=== PATIENT | male | born 1945 | race Caucasian/White ===

== ENCOUNTER 2018-02-04 09:55 | Day surgery (SDC) | payer MEDICARE, OTHER ==
[~2018-02-04] VITALS: Ht 185.4 cm; Wt 79.4 kg
[~2018-02-04 09:55] MED LIST: ASPIR-LOW81 MG PO; B COMPLEX1 EACH PO; CELEBREX200 MG PO; CENTRUM SILVER1 EAC3 PO; FISH OIL 1,0001 EAC3 PO; MELOXICAM15 MG PO; NORCO 5-325 TA1 EACH PO; PRAVACHOL40 MG PO
--- NOTE | 2018-02-04 13:19 | NUR ---
PT IS ALERT AND ORIENTED. HIS RAJ AND Te IN LAW PRESENT. PT SEEMS INFORMED AND PREPARED, REQUESTED PRAYER. WILL FOLLOW NEEDED
--- NOTE | 2018-02-04 13:25 | NUR ---
02/04/18 1325 Kristi Machuca 1317- PT ARRIVES TO PACU ON LEFT SIDE. PT AWAKE, BUT DROWSY. PT REPORTS NO PAIN OR NAUSEA AT THIS TIME.
--- NOTE | 2018-02-05 10:03 | OR ---
[facility] [address], [place] [address] Signed DATE OF OPERATION: 02/04/2018 SURGEON: Sagrario Yi MD PREOPERATIVE DIAGNOSIS: History of tubular adenomas x3, 2016. POSTOPERATIVE DIAGNOSIS: Normal colon to cecum. PROCEDURE: Total colonoscopy to cecum. ANESTHESIA: Intravenous sedation, fentanyl 100 mcg, Versed 5 mg. INDICATION: This 72-year-old white man is a patient of Dr. Elmore and underwent colonoscopy by me in 2015, at which time he was found to have three tubular adenomas, which were excised. He is generally symptom-free, having no bleeding, diarrhea, or constipation problems. He is admitted at this time to undergo colonoscopy. He understands the risks of bleeding, infection, and perforation. FINDINGS: The prep was excellent. Complete colonoscopy was undertaken of the cecum. There was no evidence of polyps or other abnormality. DESCRIPTION OF PROCEDURE: The patient was brought to the endoscopy suite and placed in lateral decubitus position given intravenous sedation to the point of slurred speech and nystagmus. Digital rectal examination was normal. An Olympus video colonoscope was passed in the rectum and manipulated throughout the colon ultimately intubating the cecum itself. The ileocecal valve and appendiceal orifice were normal. The scope was withdrawn from that point. Examination throughout showed no sign of abnormality, specifically no polyps, diverticular formation, colitis, or cancer. Retroflex view of the rectum was normal. The scope was removed. The patient was taken to recovery room in good condition. CONCLUDING DIAGNOSIS: Normal colon. Electronically Signed By: SAGRARIO YI MD 02/05/18 1003 PATIENT NAME: CHEYENNE MURILLO OPERATIVE REPORT DATE OF : 41 REPORT #: [id number] PHYSICIAN: SAGRARIO YI MD PCP: ELIZABETH FISHER PA-C REPORT IS CONFIDENTIAL AND NOT TO BE RELEASED WITHOUT AUTHORIZATION [facility] [address] [place], [place] [address], [place] [address] Signed PLAN: Recommend repeat colonoscopy in 7 years sooner if clinically indicated. He will return to the ongoing care of Dr. Elmore. MD TANJA Fiore/ABDI /[id number] cc: Vincenzo Elmore DO Copies: VINCENZO ELMORE DO ~ Electronically Signed By: SAGRARIO YI MD 02/05/18 1003 PATIENT NAME: CHEYENNE MURILLO OPERATIVE REPORT DATE OF : 41 REPORT #: [id number] PHYSICIAN: SAGRARIO YI MD PCP: ELIZABETH FISHER PA-C REPORT IS CONFIDENTIAL AND NOT TO BE RELEASED WITHOUT AUTHORIZATION
== END 2018-02-04 13:54 | disposition home or self-care (01) ==
LOC: DS 09:55 → OPS 09:55 → DS 11:00 → OPS 11:00
PROVIDERS: Surgery
PROC: 0DJD8ZZ Inspection of Lower Intestinal Tract, Via Natural or Artificial Opening Endoscopic (ICD-10-PCS; principal; 2018-02-04 11:00)
DX: Z12.11 Encounter for screening for malignant neoplasm of colon (principal); K21.9 Gastro-esophageal reflux disease without esophagitis; E78.5 Hyperlipidemia, unspecified; Z98.890 Other specified postprocedural states; Z86.010 Personal history of colon polyps; Z85.46 Personal history of malignant neoplasm of prostate
CPT/HCPCS: G0105; 99153; G0500; J2250; J3010; J7120

== ENCOUNTER 2020-03-23 09:18 | Emergency (ER) | payer MEDICARE, OTHER ==
[~2020-03-23] VITALS: Ht 185.4 cm; Wt 79.4 kg
[2020-03-23] MEDS ORDERED: OCUVITE TABLET1 EAC1 PO (09:43)
[2020-03-23] MEDS ORDERED: KEFLEX500 MG PO (10:02)
== END 2020-03-23 10:18 | disposition home or self-care (01) ==
LOC: ED 09:18
DX: L03.113 Cellulitis of right upper limb (principal); Z88.1 Allergy status to other antibiotic agents; Z79.899 Other long term (current) drug therapy; Z85.46 Personal history of malignant neoplasm of prostate
CPT/HCPCS: 99283

== ENCOUNTER 2022-10-26 15:29 | Emergency (ER) | payer MEDICARE, OTHER ==
[~2022-10-26] VITALS: Ht 185.4 cm; Wt 79.8 kg
[~2022-10-26 15:29] MED LIST changes: +KEFLEX500 MG PO; +OCUVITE TABLET1 EAC1 PO; +ZITHROMAX250 MG PO
[2022-10-26] MEDS ORDERED: PRILOSEC OTC20 MG PO (16:11)
[2022-10-26 17:11] VITALS: BP 141/83
== END 2022-10-26 17:11 | disposition home or self-care (01) ==
LOC: ED 15:29
DX: S90.32XA Contusion of left foot, initial encounter (principal); W20.8XXA Other cause of strike by thrown, projected or falling object, initial encounter; Z88.8 Allergy status to other drugs, medicaments and biological substances; Z79.899 Other long term (current) drug therapy; Z79.82 Long term (current) use of aspirin
CPT/HCPCS: 73630